=== PATIENT | male | born 1975 | race Two or more races ===

== ENCOUNTER 2018-10-27 14:09 | Outpatient (CLI) | payer OTHER | END 2018-10-27 14:23 | disposition home or self-care (01) | LOC: RAD 501 14:09 | DX: M25.511 Pain in right shoulder (principal); M54.5 Low back pain ==

== ENCOUNTER 2018-12-23 10:59 | Outpatient (CLI) | payer OTHER | END 2018-12-23 12:31 | disposition home or self-care (01) | LOC: SONOGRAMA 10:59 → MAMO-SONO 13:15 | DX: M25.511 Pain in right shoulder (principal); M75.41 Impingement syndrome of right shoulder ==